=== PATIENT | female | born 1955 | race Caucasian/White ===

== ENCOUNTER 2021-07-25 11:36 | Emergency (ER) | payer OTHER ==
[2021-07-25 12:04] VITALS: BMI 27.9
[2021-07-25] MEDS ORDERED: CASIRIVIMAB/IMDEVIMAB 10 ML in SODIUM CHLORIDE 100 ML IVPB ONE (13:20)
[2021-07-25 14:15] LABS: HEMATOCRIT 40.2 % (32.4-45.2); MCH 29.6 pg (25.7-33.7); MCHC 34.9 g/dl (32.0-36.0); MEAN CELL VOLUME 84.7 fl (80-96); MEAN PLT VOLUME 9.4 fl (7.5-11.1); PLATELET COUNT 164 10^3/uL (134-434); RBC 4.75 M/mm3 (3.60-5.2); RDW 13.2 % (11.6-15.6)
[2021-07-25 14:34] LABS: CALCIUM 8.4 mg/dL (8.5-10.1)
[2021-07-25 14:35] LABS: ALBUMIN 3.5 g/dl (3.4-5.0); BLOOD UREA NITROGEN 10.4 mg/dL (7-18)
[2021-07-25 14:38] LABS: CREATININE 0.8 mg/dL (0.55-1.3)
[2021-07-25 14:40] LABS: BILIRUBIN,TOTAL 0.5 mg/dL (0.2-1)
[2021-07-25 15:55] VITALS: BP 121/57; PULSE 88; TEMP 99.5
== END 2021-07-25 16:59 | disposition home or self-care (01) ==
LOC: JER 11:36 → JCOVINFU 11:36
DX: U07.1 COVID-19 (principal)
CPT/HCPCS: 36415; 80053; 85027; 99284-25; Q0240

== ENCOUNTER 2022-04-14 15:20 | Emergency (ER) | payer OTHER ==
[2022-04-14 15:27] VITALS: BP 125/74; PULSE 95; TEMP 98.1; BMI 27.3
[2022-04-14] MEDS ORDERED: CLINDAMYCIN 600MG PREMIX IVPB 600 MG/50 ML BAG IVPB ONE ×3 (16:50→17:17)
== END 2022-04-14 17:50 | disposition home or self-care (01) ==
LOC: JERFT 15:20 → JER 15:20 → JERFT 17:50
DX: K04.7 Periapical abscess without sinus (principal)
CPT/HCPCS: 99284-25

== ENCOUNTER 2023-05-17 05:52 | Day surgery (SDC) | payer OTHER ==
[2023-05-17 08:53] VITALS: BMI 27.3
[2023-05-17 10:05] VITALS: TEMP 98
[2023-05-17 10:27] VITALS: BP 129/62; PULSE 57; RESP 14
== END 2023-05-17 10:35 | disposition home or self-care (01) ==
LOC: JASU-ENDO 05:52
PROVIDERS: ATTEND Student in an Organized Health Care Education/Training Program
PROC: 0DBK8ZX Excision of Ascending Colon, Via Natural or Artificial Opening Endoscopic, Diagnostic (ICD-10-PCS; 2023-05-17)
PROC: 0DBN8ZX Excision of Sigmoid Colon, Via Natural or Artificial Opening Endoscopic, Diagnostic (ICD-10-PCS; principal; 2023-05-17 09:30)
DX: R19.4 Change in bowel habit (principal); D12.5 Benign neoplasm of sigmoid colon; K63.5 Polyp of colon; K57.30 Diverticulosis of large intestine without perforation or abscess without bleeding
CPT/HCPCS: 88305-TC